=== PATIENT | female | born 1970 | race Caucasian/White ===

== ENCOUNTER → 2016-12-11 | Outpatient (CLI) | payer OTHER ==
--- NOTE | 2016-12-11 10:49 | USB ---
Reason for exam: follow-up at short interval from prior study. History: Excisional biopsy of the right breast, June 2009. Took hormonal contraceptives for 19 years beginning at age 17. Physical Findings: Nurse did not find any significant physical abnormalities on exam. US Breast RT Right breast ultrasound includes all four quadrants, the retroareolar region and axilla. Finding demonstrates a 0.7 x 0.6 x 0.4cm oval, hypoechoic lesion at 11 o'clock and several oval, cystic lesions measuring 1.2 x 1.3 x 1.3cm at 1 o'clock, 0.5 x 0.5 x 0.2cm at 2 o'clock, 0.5 x 0.6 x 0.2cm at 4 o'clock, 0.7 x 0.5 x 0.5cm at 7 o'clock, 1.1 x 1.2 x 0.5cm at 9 o'clock, 0.9 x 0.7 x 0.5cm at 9 o'clock and 0.6 x 0.5 x 0.5cm at 10 o'clock. These results were verbally communicated with the patient and result sheet given to the patient on 12/11/16. ASSESSMENT: Probably benign, BI-RAD 3 RECOMMENDATION: Ultrasound of the right breast in 6 months.
== END | disposition home or self-care (01) ==
LOC: RADUSWWP 09:02
PROVIDERS: ATTEND Obstetrics & Gynecology
DX: R92.8 Other abnormal and inconclusive findings on diagnostic imaging of breast (principal)

== ENCOUNTER → 2019-07-24 | Outpatient (CLI) | payer OTHER ==
--- NOTE | 2019-07-25 14:34 | MM ---
Reason for exam: screening (asymptomatic). Last mammogram was performed 3 years and 1 month ago. History: Excisional biopsy of the right breast, June 2009. Took hormonal contraceptives for 19 years beginning at age 17. Physical Findings: A clinical breast exam by your physician is recommended on an annual basis and results should be correlated with mammographic findings. MG 3D Screening Mammo W/Cad Bilateral CC and MLO view(s) were taken. Prior study comparison: June 29, 2016, bilateral MG 3d diag mammo w/cad [facility]. December 24, 2013, bilateral digital screening mammo w/CAD. The breast tissue is extremely dense which could obscure a lesion on mammography. There is a smaller right central inner middle depth mass. No suspicious abnormality. No significant changes when compared with prior studies. ASSESSMENT: Negative, BI-RAD 1 RECOMMENDATION: Routine screening mammogram of both breasts in 1 year.
== END | disposition home or self-care (01) ==
LOC: RADMAMWWP 10:30
PROVIDERS: ATTEND Family Medicine
DX: Z12.31 Encounter for screening mammogram for malignant neoplasm of breast (principal)
CPT/HCPCS: 77063; 77067

== ENCOUNTER → 2021-01-27 | Outpatient (CLI) | payer OTHER ==
--- NOTE | 2021-01-28 11:18 | MM ---
Reason for exam: screening (asymptomatic). Last mammogram was performed 1 year and 6 months ago. History: Excisional biopsy of the right breast, June 2009. Took hormonal contraceptives for 19 years beginning at age 17. Physical Findings: A clinical breast exam by your physician is recommended on an annual basis and results should be correlated with mammographic findings. MG 3D Screening Mammo W/Cad Bilateral CC and MLO view(s) were taken. Prior study comparison: July 24, 2019, bilateral MG 3d screening mammo w/cad. June 29, 2016, bilateral MG 3d diag mammo w/cad [facility]. The breast tissue is extremely dense which could obscure a lesion on mammography. Finding #1: There is a 10 mm indistinct oval mass located 5-6 cm from the nipple in the outer quadrant, middle position of the right breast on CC 15/60. Finding #2: There are typically benign round calcifications in both breasts. ASSESSMENT: Incomplete: need additional imaging evaluation, BI-RAD 0 RECOMMENDATION: Ultrasound of the right breast. [facility] will attempt to contact patient to return for ultrasound.
== END | disposition home or self-care (01) ==
LOC: RADMAMWWP 09:55
PROVIDERS: ATTEND Family Medicine
DX: Z12.31 Encounter for screening mammogram for malignant neoplasm of breast (principal)
CPT/HCPCS: 77063; 77067

== ENCOUNTER → 2021-02-02 | Outpatient (CLI) | payer OTHER ==
--- NOTE | 2021-02-03 09:40 | USB ---
Reason for exam: additional evaluation requested from abnormal screening. History: Excisional biopsy of the right breast, June 2009. Took hormonal contraceptives for 19 years beginning at age 17. Physical Findings: Nurse did not find any significant physical abnormalities on exam. US Breast Workup Limited RT Right limited breast ultrasound including focal area of concern, retroareolar and axilla demonstrates three oval, cystic lesions measuring 0.5 x 0.3 x 0.6cm at 7 o'clock, 1.0 x 0.5 x 0.6cm at 9 o'clock and 0.6 x 0.5 x 0.5cm at 10 o'clock. These results were verbally communicated with the patient and result sheet given to the patient on 02/02/21. ASSESSMENT: Benign, BI-RAD 2 RECOMMENDATION: Return to routine screening mammogram schedule for both breasts.
== END | disposition home or self-care (01) ==
LOC: RADUSWWP 14:57
PROVIDERS: ATTEND Family Medicine
DX: N60.01 Solitary cyst of right breast (principal)

== ENCOUNTER → 2022-02-22 | Outpatient (CLI) | payer OTHER ==
--- NOTE | 2022-02-23 19:06 | MM ---
Reason for Exam: Screening (asymptomatic). Last mammogram was performed 1 year(s) and 1 month(s) ago. Patient History: Menarche at age 14. First Full-Term at age 24. Hormonal Contraceptives for 19 years from age 17 until age 36. 06/2009, Excisional Biopsy on the Right side. Risk Values: Zenobia 5 year model risk: 1.0%. NCI Lifetime model risk: 9.6%. Prior Study Comparison: 06/29/2016 Bilateral Diagnostic Mammogram, [facility]. 07/24/2019 Bilateral Screening Mammogram, [facility]. 01/27/2021 Bilateral Screening Mammogram, [facility]. Tissue Density: The breast tissue is heterogeneously dense. This may lower the sensitivity of mammography. Findings: Analyzed By CAD. There is new 9 mm circumscribed isodense nodularity far posterior upper right MLO view. Not clearly identified on the CC view. Possible less regional lymph node. Further evaluation recommended as it was not seen previously. Otherwise, no significant change. Overall Assessment: Incomplete: need additional imaging evaluation, BI-RAD 0 Management: Special View Mammogram of the right breast. Additional views right breast to include spot 3-D MLO, 3-D lateral (to include far posterior tissues), and 3-D XCCL views. Targeted right breast ultrasound for any persisting abnormality. Electronically signed and approved by: Jaymie Velazquez M.D. Radiologist
== END | disposition home or self-care (01) ==
LOC: RADMAMWWP 15:20
PROVIDERS: ATTEND Obstetrics & Gynecology
DX: Z12.31 Encounter for screening mammogram for malignant neoplasm of breast (principal)
CPT/HCPCS: 77063; 77067

== ENCOUNTER → 2022-03-08 | Outpatient (CLI) | payer OTHER ==
--- NOTE | 2022-03-09 09:59 | USB ---
Reason for Exam: Additional evaluation requested from abnormal screening. Last screening mammogram was performed less than 1 month ago. Patient History: Menarche at age 14. First Full-Term at age 24. Hormonal Contraceptives for 19 years from age 17 until age 36. 06/2009, Excisional Biopsy on the Right side. Risk Values: Zenobia 5 year model risk: 1.0%. NCI Lifetime model risk: 9.6%. Prior Study Comparison: 07/24/2019 Bilateral Screening Mammogram, [facility]. 01/27/2021 Bilateral Screening Mammogram, [facility]. 02/22/2022 Bilateral MG 3D screening mammo w/cad, [facility]. Tissue Density: Right: The breast tissue is heterogeneously dense. This may lower the sensitivity of mammography. Findings: Analyzed By CAD. An 8 mm oval obscured density in the posterior depth slightly upper aspect of the right breast views. Further workup advised. Technique: Method: Targeted. Findings: The upper outer quadrant of the right breast and the axilla of the right breast were scanned. Finding 1: Simple cyst. Laterality: Right. Size 9 x 5 x 8 mm. 10 O'clock Quadrant: Upper outer. 8 cm cm from nipple. Shape: Circumscribed. Margin: Circumscribed (Well-Defined or Sharply-Defined). Finding 2: Lymph Nodes - Axillary findings. Laterality: Right. There is background dense tissue with 9 x 5 x 8 mm oval anechoic lesion felt to reflect simple thin-walled cyst with increased through-transmission likely corresponding to new area of mammogram concern. Overall Assessment: Benign, BI-RAD 2 Assessment: MG 3D work up w/cad RT - Right: Incomplete: need additional imaging evaluation, BI-RAD 0. Targeted right breast ultrasound. Results were given to the patient verbally at the time of exam. US breast workup limited RT - Right: Benign, BI-RAD 2. Management: Screening Mammogram of both breasts in 1 year. Return to routine follow-up. Electronically signed and approved by: Jl Vargas M.D.
== END | disposition home or self-care (01) ==
LOC: RADMAMWWP 10:28
PROVIDERS: ATTEND Family Medicine
DX: N60.01 Solitary cyst of right breast (principal)
CPT/HCPCS: 77061; 77065

== ENCOUNTER 2022-08-11 10:00 | Day surgery (SDC) | payer OTHER ==
[2022-08-09 14:34] VITALS: BMI 21.9
[~2022-08-11 10:00] MED LIST: LACTATED RINGERS 1,000 ML IV SCH
[2022-08-11 10:44] VITALS: RESP 16; TEMP 97
[2022-08-11] MEDS ORDERED: LIDOCAINE 2% INJ 20 MG/ML (2 ML VIAL) ONE (11:36)
[2022-08-11] MEDS ORDERED: PROPOFOL 10 MG/ML 20 ML VIAL IV ONE (11:36)
--- NOTE | 2022-08-11 11:53 | P.PCN ---
Date of Procedure: 08/11/22 Procedure(s) Performed: BRIEF HISTORY: Patient is a 51-year-old pleasant white female scheduled for an elective colonoscopy as a part of screening for colorectal neoplasia. PROCEDURE PERFORMED: Colonoscopy. PREOPERATIVE DIAGNOSIS: Screening for colon cancer. IV sedation per Anesthesia. PROCEDURE: After informed consent was obtained, the patient, was brought into the endoscopy unit. IV sedation was administered by Anesthesia under continuous monitoring. Digital rectal examination was normal. Initially the Olympus CF-160 flexible video colonoscope was then inserted in the rectum, gradually advanced into the cecum without any difficulty. Careful examination was performed as the scope was gradually being withdrawn. Ileocecal valve and the appendiceal orifice were visualized and appeared normal. Prep was excellent. Mucosa of the cecum, ascending colon, transverse colon, descending colon, sigmoid colon, and rectum appeared normal. Retroflexion was performed in the rectum and no lesions were seen. The patient tolerated the procedure well. IMPRESSION: Normal-appearing colon from rectum to cecum with no evidence of colorectal neoplasia. RECOMMENDATIONS: Findings of this examination were discussed with the patient as well as a family. She was advised to have a repeat screening colonoscopy in 10 years..
[2022-08-11 12:20] VITALS: BP 120/80; PULSE 77
== END 2022-08-11 12:35 | disposition home or self-care (01) ==
LOC: ORWHC2ENDO 10:00
PROVIDERS: ATTEND Internal Medicine Gastroenterology
DX: Z12.11 Encounter for screening for malignant neoplasm of colon (principal); F32.A Depression, unspecified; F41.9 Anxiety disorder, unspecified; Z88.2 Allergy status to sulfonamides; Z79.899 Other long term (current) drug therapy
CPT/HCPCS: 45378; 81025; 84703; J2704; J2001

== ENCOUNTER → 2024-01-23 | Outpatient (CLI) | payer OTHER ==
--- NOTE | 2024-01-24 17:46 | MM ---
Reason for Exam: Screening (asymptomatic). Last mammogram was performed 1 year(s) and 11 month(s) ago. Patient History: Menarche at age 14. First Full-Term at age 24. Hormonal Contraceptives for 19 years from age 17 until age 36. 06/2009, Excisional Biopsy on the Right side. Last menstrual period: Risk Values: Zenobia 5 year model risk: 1.1%. NCI Lifetime model risk: 9.3%. Prior Study Comparison: 01/27/2021 Bilateral Screening Mammogram, [facility]. 02/22/2022 Bilateral MG 3D screening mammo w/cad, [facility]. 03/08/2022 Right MG 3D work up w/cad RT, [facility]. Tissue Density: The breasts are extremely dense, which lowers the sensitivity of mammography. Findings: Analyzed By CAD. The pattern is symmetrical. No significant interval change is evident. No suspicious groups of microcalcifications, spiculated or lobular masses, architectural distortion or other secondary signs of malignancy are mammographically apparent. Overall Assessment: Benign, BI-RAD 2 Management: Screening Mammogram of both breasts in 1 year. A negative mammogram report should not preclude additional follow up of suspicious palpable abnormalities. Patient should continue monthly self breast exam. A clinical breast exam by your physician is recommended on an annual basis and results should be correlated with mammographic findings. Note on Zenobia scores and lifetime risk: 1. A Zenobia score greater than 3% is considered moderate risk. If this is the case, consider specialist referral to assess eligibility for a risk reducing agent. 2. If overall lifetime risk for the development of breast cancer is 20% or higher, the patient may qualify for future screening with alternating mammogram and breast MRI. Electronically signed and approved by: Barry Friend D.O. Radiologis
== END | disposition home or self-care (01) ==
LOC: RADMAMWWP 10:36
PROVIDERS: ATTEND Obstetrics & Gynecology
DX: Z12.31 Encounter for screening mammogram for malignant neoplasm of breast (principal)
CPT/HCPCS: 77067